=== PATIENT | female | born 1985 | race Caucasian/White ===

== ENCOUNTER → 2022-07-15 | Outpatient (CLI) | payer SELFPAY ==
[2022-07-15 10:33] LABS: BASO # 0.05 K/mm3 (0.02-0.10); EOS # 0.12 K/mm3 (0.04-0.40); EOS % 2.3 % (1.0-5.0); HEMATOCRIT 41.8 % (37.0-47.0); HEMOGLOBIN 13.6 g/dL (12.5-16.0); LYMPH# 1.67 K/mm3 (1.50-4.00); MEAN CELL VOLUME 90 fl (78-100); MEAN CORPUSCULAR HEMOGLOBIN 29 pg (27-31); MEAN CORPUSCULAR HGB CONC 33 g/dL (33-37); MEAN PLATELET VOLUME 11.6 fl (7.4-10.4); MONO # 0.46 K/mm3 (0.20-0.80); NEU # 2.84 K/mm3 (1.40-6.50); PLATELET COUNT 181 K/mm3 (130-400); RED BLOOD COUNT 4.65 M/mm3 (4.10-5.30); RED CELL DISTRIBUTION WIDTH 12.8 % (11.5-14.5); WHITE BLOOD COUNT 5.2 K/mm3 (4.8-10.8)
[2022-07-15 12:38] LABS: POTASSIUM 4.3 mmol/L (3.5-5.1)
[2022-07-15 12:39] LABS: ALBUMIN 4.2 g/dL (3.5-5.0)
[2022-07-15 12:41] LABS: TOTAL PROTEIN 7.2 g/dL (6.4-8.3)
== END ==
LOC: LAB 10:09
PROVIDERS: Physician Assistant
DX: Z00.00 Encounter for general adult medical examination without abnormal findings (principal); Z13.29 Encounter for screening for other suspected endocrine disorder; Z13.220 Encounter for screening for lipoid disorders; R53.83 Other fatigue; R40.0 Somnolence; K90.9 Intestinal malabsorption, unspecified

== ENCOUNTER → 2022-12-12 | Outpatient (CLI) | payer BC | LOC: RAD 17:10 | DX: G47.10 Hypersomnia, unspecified (principal) | CPT/HCPCS: A9575 ==